=== PATIENT | female | born 1975 | race Caucasian/White ===

== ENCOUNTER 2024-09-09 08:46 | Emergency (ER) | payer BC, SELFPAY ==
[2024-09-09 09:09] VITALS: BP 133/85; PULSE 78; RESP 16; TEMP 36.6; O2SAT 97; BMI 22.4
--- NOTE | 2024-09-09 09:40 | W.ED.BACK ---
HPI - Back Pain/Injury General: Chief Complaint: Back Pain/Injury Stated Complaint: lower back pain Time Seen by Provider: 09/09/24 09:01 Source: patient Mode of arrival: wheelchair Limitations: no limitations History of Present Illness: Patient is a 49-year-old female presenting to the emergency department with one day of right lower back pain. Patient states she was lifting yesterday when she heard several pops in her lower back and had immediate pain and inability to bear weight on her right leg. She describes the pain as a constant stabbing that radiates from her lower back to her knee. She reports using heat and cold therapy, prescription muscle relaxers, and hydrocodone which are not helping. MD elicited complaint: back pain and back injury Onset (ago): day(s) (yesterday) Timing: constant Severity: severe Similar Symptoms Previously: No Quality: sharp and stabbing Location: right lower back Radiation: right upper leg Exacerbating factors: movement and walking Relieving factors: immobilization and medication Context: while lifting Associated symptoms: Reports no associated symptoms and difficulty walking (due to pain); Deny abdominal pain, dysuria or hematuria Treatments prior to arrival: cold therapy, heat therapy and prescription analgesics Work related injury: No Related Data Previous Rx's ?Medication ?Instructions ?Recorded ibuprofen 800 mg tablet 800 mg PO Q8H PRN pain #20 tabs 09/09/24 methocarbamol 500 mg tablet 1,000 mg (2 x 500 mg) PO Q8H #30 09/09/24 tabs prednisone 10 mg tablet 10 mg PO DAILY 6 days #20 tabs 09/09/24 tramadol 50 mg tablet 50 mg PO Q6H PRN pain #14 tabs 09/09/24 Allergies Allergy/AdvReac Type Severity Reaction Status Date / Time No Known Allergies Allergy Verified 03/09/23 14:26 Review of Systems Card: Denies: chest pain or palpitations Resp: Denies: dyspnea GI: Denies: abdominal pain : Denies: flank pain, dysuria or hematuria Musc: Reports: back pain (right lower back radiating down right leg), extremity pain, limited range of motion and muscle weakness; Denies: neck pain, extremity swelling, joint pain (right knee), joint swelling, joint redness, joint warmth or joint stiffness Neuro: Reports: sensory changes and difficulty walking (due to pain); Denies: headache(s) or numbness in extremities PFSH ED PFSH: Medical History Diabetes type 2, controlled Surgical History H/O: hysterectomy History of History of appendectomy Female Reproductive History: Spontaneous abortions: No Physical Exam Const: COMMON NORMALS: no acute distress, average body habitus, patient oriented x3, no limitations, healthy appearing, alert and well nourished GENERAL APPEARANCE: cooperative, well kempt and well developed ORIENTATION/CONSCIOUSNESS: Yes awake, Yes oriented to person, Yes oriented to place and Yes oriented to time HENMT: COMMON NORMALS: normocephalic and atraumatic HEAD & SCALP: normal to inspection, normocephalic and atraumatic Neck/C-Spine: COMMON NORMALS: full ROM, no lymphadenopathy and no meningeal signs Chest: COMMONS NORMALS: normal inspection of the chest and normal palpation of entire chest wall Resp: COMMON NORMALS: normal respiratory effort, No retractions, No use of accessory muscles and clear to auscultation bilaterally AUSCULTATION: clear to auscultation bilaterally Cardio: COMMON NORMALS: regular rate, regular rhythm, S1 normal heart sound present and S2 normal heart sound present RATE: regular rate RHYTHM: regular rhythm HEART SOUNDS: S1 normal heart sound present and S2 normal heart sound present GI: COMMON NORMALS: Normal to inspection, nondistended, normoactive bowel sounds present, Soft to palpation, non-tender and no masses PALPATION: Yes Soft to palpation : COMMON NORMALS: Yes no CVA tenderness BLADDER/KIDNEY EXAM: Yes no CVA tenderness Back/Pelvis: COMMON NORMALS: no CVA tenderness LUMBAR SPINE/LOWER BACK: Yes ROM limited, Yes pain with ROM, Yes lumbar spinal tenderness, Yes paraspinal muscle tenderness, No paraspinal muscle spasm and Yes straight leg raise positive right SACROILIAC JOINTS: Yes SI joints normal SACRUM: no tenderness COCCYX: no tenderness Extremity: COMMON NORMALS: capillary refill normal, no clubbing, cyanosis or edema, no calf tenderness and no pedal edema NARRATIVE EXTREMITY EXAM: ROM limited to R LE due to pain in her R lower back; extremity is NV intact with pulses felt from femoral all the way down to DP/PT GENERAL: Yes normal exam except as noted Neuro: COMMON NORMALS: patient oriented x3, moves all extremities, no focal motor deficits and no sensory deficits noted SENSORIUM/ORIENTATION: Yes alert, Yes oriented to person, Yes oriented to place and Yes oriented to time MENINGEAL SIGNS: Yes no meningeal signs MOTOR EXAM: Abnormal motor strength present (4/5 R LE) Psych: APPEARANCE: Yes well kempt Course Vital Signs: Vital signs: Vital Signs Temperature 97.9 F 09/09/24 09:09 Pulse Rate 88 09/09/24 10:03 Respiratory Rate 16 09/09/24 09:09 Blood Pressure 147/101 09/09/24 10:03 Pulse Oximetry 99 09/09/24 10:03 Oxygen Delivery Me thod Room Air 09/09/24 10:03 MDM - Back Pain/Injury Medical Decision Making Patient feels better after IV medications given here. She is ambulatory here in the emergency department. CT scan showing disc protrusions traversing her right L3 and L5 nerve roots which is consistent with her symptomatology today. Will place her on steroids, anti-inflammatories, muscle relaxers, and pain medications at home. Recommend she follow-up with primary care. Differential Diagnosis Likely lumbar radiculopathy Medical Records I reviewed the patient's medical records. Labs Radiology Impressions Lumbar Spine CT 09/09/24 09:41 IMPRESSION: 1. No acute lumbar spine fracture. 2. L4-5: Moderate central disc protrusion contacting the traversing L5 nerve roots. Moderate central, bilateral subarticular recess and mild RIGHT foraminal stenosis. 3. L3-4: RIGHT foraminal disc protrusion contacts the exiting RIGHT L3 nerve root. Annular disc bulging resulting in mild bilateral foraminal stenosis. There is also very mild disc contact on the traversing L4 nerve roots in the subarticular recesses. Mild central, subarticular recess and foraminal stenosis. All radiology interpretation(s) finalized by discharge Discharge Plan Discharge Patient Disposition: Home Clinical Impression: Acute right lumbar radiculopathy, Protrusion of lumbar intervertebral disc Condition: Stable Prescriptions: New methocarbamol 500 mg tablet 1,000 mg PO Q8H Qty: 30 0RF prednisone 10 mg tablet 10 mg PO DAILY 6 Days Qty: 20 0RF Rx Instructions: Take 5 tabs on day 1-2, 4 tabs on day 3, 3 tabs on day 4, 2 tabs on day 5, and 1 tab on day 6 ibuprofen 800 mg tablet 800 mg PO Q8H PRN (Reason: pain) Qty: 20 0RF tramadol 50 mg tablet 50 mg PO Q6H PRN (Reason: pain) Qty: 14 0RF Discharge Orders: Discharge ED (Routine); Ordered 09/09/24 Ordered By: Angela Rosales Referrals: Johnson Garcia MD [Primary Care Provider, Family Practice] Patient Instructions: Lumbar Disc Herniation (ED), Lumbar Radiculopathy (ED) Activity Restrictions/Additional Instructions: As we discussed, please follow-up with primary care in 1 to 2 weeks if symptoms are not improving. Limit lifting. You may use the prescribed medications to you as directed. In addition you may continue to use ice and heat as well as topical therapies. Print Language: Micronesian Coding Level of Care Code ED [employer] for Shanice Morgan
--- NOTE | 2024-09-09 09:41 | CT_ITS ---
WS: [id number] CT LUMBAR SPINE, noncontrast. HISTORY: back injury; R radicular pain TECHNIQUE: Contiguous 2.0 mm axial imaging are performed. Sagittal and coronal reformats are submitted and reviewed. All CT scans at [facility] use at least one of these dose optimization techniques: automated exposure control; mA and/or kV adjustment per patient size (includes targeted exams where dose is matched to clinical indication); or iterative reconstruction. IV contrast: None DLP: 396.30 mGy.cm COMPARISON: None available. Normal lumbar alignment with no loss of disc space height or vertebral body height. L1-2: Normal. L2-3: Mild annular disc bulging. No stenosis. L3-4: Diffuse annular disc bulging. RIGHT foraminal disc protrusion contacts the exiting RIGHT L3 nerve root. Mild bilateral foraminal stenosis. There is also disc contact in the subarticular recesses on the traversing L4 nerve roots. Mild central, subarticular recess and foraminal stenosis. L4-5: Diffuse annular disc bulging with a broad-based moderate disc protrusion. Disc protrusion extends into the subarticular recesses contacting the traversing L5 nerve roots. Moderate central, bilateral subarticular recess and mild RIGHT foraminal stenosis. L5-S1: Mild annular disc bulging. No significant stenosis. 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 Adrenal glands are negative. CT/CT lumbar spine wo con* [id number] IMPRESSION: 1. No acute lumbar spine fracture. 2. L4-5: Moderate central disc protrusion contacting the traversing L5 nerve r oots. Moderate central, bilateral subarticular recess and mild RIGHT foraminal stenosis. 3. L3-4: RIGHT foraminal disc protrusion contacts the exiting RIGHT L3 nerve r oot. Annular disc bulging resulting in mild bilateral foraminal stenosis. There is also very mild disc contact on the traversing L4 nerve roots in the subarti cular recesses. Mild central, subarticular recess and foraminal stenosis.
[2024-09-09] MEDS: orphenadrine 30 mg/mL Inj 2 mL 60 MG IVP (09:55)
[2024-09-09] MEDS: ketorolac 30 mg/mL INJ IVP (09:55)
[2024-09-09] MEDS: dexamethasone 4 mg/mL INJ 8 MG IVP (09:55)
[2024-09-09 10:03] VITALS: BP 147/101; PULSE 88; O2SAT 99
[2024-09-09 12:42] VITALS: BP 141/95; PULSE 81; O2SAT 98
== END 2024-09-09 12:44 | disposition home or self-care (01) ==
PROVIDERS: Emergency Provider Physician Assistant; PCP Family Medicine
DX: M51.16 Intervertebral disc disorders with radiculopathy, lumbar region (principal); E11.9 Type 2 diabetes mellitus without complications
CPT/HCPCS: 36415; 72131; 96374; 96375; 99285; J1100; J1885; J2360